=== PATIENT | male | born 1985 | race Caucasian/White ===

== ENCOUNTER 2019-03-10 19:10 | Emergency (ER) | payer OTHER ==
[~2019-03-10] VITALS: Ht 177.8 cm; Wt 94.3 kg
[~2019-03-10 19:10] MED LIST: CETI10 PO; CIPR500 PO; EPIN.3I IM; FAMO20 PO; HYDACE5; HYDACE5 PO; PRED20 PO; Percocet 5-3251 EACH PO
[2019-03-10 20:03] LABS: Source, Urine Clean Catch
[2019-03-10 20:07] LABS: Blood, Urine Neg (Neg); Glucose Qualitative, Urine Neg (Neg); Ketones, Urine 1+ (Neg); Leukocyte Esterase, Urine 1+ (Neg); Nitrite, Urine Neg (Neg); Protein, Urine 2+ (Neg); Urobilinogen, Urine 1+ (Normal)
[2019-03-10 20:23] LABS: Appearance, Urine Cloudy (Clear); Bilirubin, Urine 1+ (Neg); Color, Urine Yellow (P-Yellow)
[2019-03-10 20:25] LABS: Amorphous Heavy (0-Heavy); Bacteria Few /hpf; Red Blood Cells, Urine 0-2 /hpf (0-2); Squamous Epithelial Cells Not Seen /hpf (Few); White Blood Cells, Urine 0-2 /hpf (0-5)
[2019-03-10] MEDS ORDERED: CEFP200 PO (20:36)
[2019-03-10] MEDS ORDERED: KETO10 PO (20:39)
== END 2019-03-10 22:10 | disposition home or self-care (01) ==
LOC: ER 19:10
PROVIDERS: Physician Assistant
DX: N39.0 Urinary tract infection, site not specified (principal)
CPT/HCPCS: 51798; 81001; 87086; 99284-25; A9270-GY

== ENCOUNTER → 2019-10-22 | Outpatient (CLI) | payer OTHER ==
[~2019-10-22] MED LIST changes: +CEFP200 PO; +KETO10 PO
== END | disposition home or self-care (01) ==
LOC: LAB SHORT 19:25 → LAB EV 19:25
DX: R07.0 Pain in throat (principal)
CPT/HCPCS: 87081